=== PATIENT | male | born 1975 | race Native Hawaiian/Other Pacific Islander ===

== ENCOUNTER 2017-01-21 08:46 | Emergency (ER) | payer OTHER ==
[2017-01-21 09:14] LABS: Bilirubin,Urine NEG (Negative); Blood,Urine SM (Negative); Ketones,Urine NEG (Negative); Leukocyte Esterase,Urine NEG (Negative); Mucus,Urine FEW /HPF; Nitrite,Urine NEG (Negative); Protein,Urine <15 mg/dL mg/dL (Negative); Urobilinogen,Urine < 2.0 mg/dL (<2.0); WBC,Urine < 1.0 /HPF (0.0-6.0)
[2017-01-21 09:29] LABS: Basophils % (Auto) 0.7 % (0.0-1.8); Eosinophils % (Auto) 6.3 % (0.0-4.3); Hematocrit 45.4 % (35.5-45.6); Hemoglobin 15.8 gm/dl (11.8-15.2); Mean Corpuscular HGB Conc 35 % (32-34); Mean Corpuscular Hemoglobin 33 pg (28-32); Mean Corpuscular Volume 94 fl (84-94); Platelet Count 191 K/mm3 (140-440); Red Blood Count 4.85 M/mm3 (3.65-5.03); Red Cell Distribution Width 12.7 % (13.2-15.2); White Blood Count 5.8 K/mm3 (4.5-11.0)
[2017-01-21 09:53] LABS: Alanine Aminotransferase 33 units/L (7-56); Albumin 4.4 g/dL (3.9-5); Albumin/Globulin Ratio 1.6 %; Alkaline Phosphatase 96 units/L (35-129); Anion Gap 18 mmol/L; BUN/Creatinine Ratio 22; Blood Urea Nitrogen 13 mg/dL (9-20); Calcium 8.9 mg/dL (8.4-10.2); Carbon Dioxide 25 mmol/L (22-30); Chloride 102.3 mmol/L (98-107); Glucose 100 mg/dL (75-100); Lipase 32 units/L (13-60); Sodium 141 mmol/L (137-145); Total Protein 7.2 g/dL (6.3-8.2)
--- NOTE | 2017-01-21 20:14 | Emergency Department Report ---
HPI - General Chief Complaint: Abdominal Pain Time Seen by Provider: 01/21/17 19:32 - HPI HPI: Room 7 The patient is a 41-year-old male presenting with a chief complaint of abdominal pain. The patient states for approximately one week he has had intermittent lower abdominal pain with left greater than the right. Patient also complains of bilateral back pain. Patient states he saw his primary physician yesterday and a urine dip showed "small blood." The patient states she was told to follow up with the specialist. Patient continues have pain in his low back and lower abdominal pain with left greater than right. Patient missed a mild dysuria. Patient and his nausea but denies vomiting or fever. Patient denies shortness of breath or unexplained weight loss. Patient denies any other types of pain besides what's explained above Location: [See above] Duration: One week Quality: Pain Severity: Moderate Modifying factors: [see above] Context: [see above] Mode of transportation: The patient drove himself to the emergency department and there are no visitors present ED Past Medical Hx - Past Medical History Previous Medical History?: Yes Hx Asthma: Yes - Surgical History Past Surgical History?: Yes Additional Surgical History: hernia - Family History Family history: no significant - Social History Smoking Status: Never Smoker Substance Use Type: Alcohol - Medications Home Medications: Home Medications Medication Instructions Recorded Confirmed Last Taken Type Ibuprofen [Motrin 800 MG tab] 800 mg PO Q8HR PRN #20 tablet 01/21/17 Unknown Rx Sulfamethoxazole/Trimethoprim 1 each PO BID #14 tablet 01/21/17 Unknown Rx [Bactrim DS TAB] traMADol [Ultram] 50 mg PO Q6HR PRN #14 tablet 01/21/17 Unknown Rx ED Review of Systems ROS: Stated complaint: ABDOMINAL/BACK PAIN Other details as noted in HPI Constitutional: denies: fever Eyes: denies: eye pain ENT: denies: throat pain Respiratory: denies: shortness of breath Cardiovascular: denies: chest pain Endocrine: denies: unexplained weight gain Gastrointestinal: abdominal pain, nausea. denies: vomiting Genitourinary: dysuria Musculoskeletal: back pain Neurological: denies: headache Physical Exam - Physical Exam Vital Signs: Vital Signs 01/21/17 01/21/17 09:00 18:36 Temperature 97.4 F L 98.1 F Pulse Rate 60 59 L Respiratory 16 16 Rate Blood Pressure 145/84 Blood Pressure 141/86 [Right] O2 Sat by Pulse 97 98 Oximetry Physical Exam: GENERAL: The patient is well-developed well-nourished male lying on stretcher not appearing to be in acute distress. [] HEENT: Normocephalic. Atraumatic. Extraocular motions are intact. Patient has moist mucous membranes. NECK: Supple. Trachea midline CHEST/LUNGS: Clear to auscultation. There is no respiratory distress noted. HEART/CARDIOVASCULAR: Regular. There is no tachycardia. There is no gallop rub or murmur. ABDOMEN: Abdomen is soft, with discomfort to palpation in bilateral lower quadrants, left greater than right. Patient has normal bowel sounds. There is no abdominal distention. SKIN: There is no rash. There is no edema. There is no diaphoresis. NEURO: The patient is awake, alert, and oriented. The patient is cooperative. The patient has normal speech MUSCULOSKELETAL: There is bilateral CVA tenderness. There is no evidence of acute injury. ED Course Vital Signs 01/21/17 01/21/17 09:00 18:36 Temperature 97.4 F L 98.1 F Pulse Rate 60 59 L Respiratory 16 16 Rate Blood Pressure 145/84 Blood Pressure 141/86 [Right] O2 Sat by Pulse 97 98 Oximetry ED Medical Decision Making - Lab Data Result diagrams: 01/21/17 09:18 01/21/17 09:18 Laboratory Tests 01/21/17 01/21/17 01/21/17 09:05 09:18 09:18 WBC 5.8 RBC 4.85 Hgb 15.8 H Hct 45.4 MCV 94 MCH 33 H MCHC 35 H RDW 12.7 L Plt Count 191 Lymph % (Auto) 29.2 [place] % (Auto) 8.0 H Eos % (Auto) 6.3 H Baso % (Auto) 0.7 Lymph # 1.7 [place] # 0.5 Eos # 0.4 Baso # 0.0 Seg Neutrophils % 55.8 Seg Neutrophils # 3.3 Sodium 141 Potassium 4.0 Chloride 102.3 Carbon Dioxide 25 Anion Gap 18 BUN 13 Creatinine 0.6 L Estimated GFR > 60 BUN/Creatinine Ratio 22 Glucose 100 Calcium 8.9 Total Bilirubin 0.50 AST 22 ALT 33 Alkaline Phosphatase 96 Total Protein 7.2 Albumin 4.4 Albumin/Globulin Ratio 1.6 Lipase 32 Urine Color Yellow Urine Turbidity Clear Urine pH 5.0 Ur Specific [place] 1.016 Urine Protein <15 mg/dl Urine Glucose (UA) Neg Urine Ketones Neg Urine Blood Sm Urine Nitrite Neg Urine Bilirubin Neg Urine Urobilinogen < 2.0 Ur Leukocyte Esterase Neg Urine WBC (Auto) < 1.0 Urine RBC (Auto) 1.0 U Epithel Cells (Auto) < 1.0 Urine Mucus Few - Radiology Data Radiology results: report reviewed (CT abdomen and pelvis), image reviewed (CT abdomen and pelvis) FINAL REPORT PROCEDURE: CT ABDOMEN PELVIS WO CON TECHNIQUE: Computerized axial tomography of the abdomen and pelvis was performed without intravenous contrast. This study is performed without intravascular contrast material and its sensitivity for abdominal and pelvic pathology, including neoplasms, inflammation, abscess, free fluid, thrombosis, arterial dissection and infarction, is reduced compared with a contrast enhanced study. HISTORY: lower abd pain left greater than right. Back pain COMPARISON: No prior studies are available for comparison. FINDINGS: Liver, spleen, pancreas and adrenal glands are within normal limits. Bilateral kidneys demonstrate uniform density without calculi or hydronephrosis. Urinary bladder is empty. Aorta is of normal caliber. There is no free fluid or free air. Gallbladder is unremarkable. Small bowel loops are within normal limits. Moderate amount of residual stool is noted. Appendix is normal. There is mild prostatomegaly. Vertebral height is normal.. IMPRESSION: Moderate degree residual stool. Otherwise no acute intra-abdominal or pelvic pathology as visualized on this noncontrast study.. Transcribed By: [facility] Dictated By: TRISTAN EMERY Electronically Authenticated By: TRISTAN EMERY Signed Date/Time: 01/21/17 163 DD/ 1633 TD/TT: 01/21/17 1633 - Medical Decision Making Patient CT scan is unremarkable. Appendix was visualized and was within normal limits. No evidence of obstructive uropathy. Given patient's dysuria I will initiate empiric antibiotics even though his urinalysis does not necessarily reflect a UTI. Urine culture will be ordered - Differential Diagnosis renal colic, pyelonephritis, UTI, diverticulitis, appendicitis Critical care attestation.: If time is entered above; I have spent that time in minutes in the direct care of this critically ill patient, excluding procedure time. ED Disposition Clinical Impression: Acute abdominal pain, Dysuria Disposition: DC-01 TO HOME OR SELFCARE Is pt being admited?: No Does the pt Need Aspirin: No Condition: Stable Instructions: Dysuria (ED) Additional Instructions: Return to the emergency department immediately should you develop worsening symptoms, fever, inability to tolerate food or liquid or any other concerns. Prescriptions: Ibuprofen [Motrin 800 MG tab] 800 mg PO Q8HR PRN #20 tablet PRN Reason: Pain Sulfamethoxazole/Trimethoprim [Bactrim DS TAB] 1 each PO BID #14 tablet traMADol [Ultram] 50 mg PO Q6HR PRN #14 tablet PRN Reason: Pain Referrals: PRIMARY CARE, [Primary Care Provider] - 3-5 Days TERESSA BUNDY MD [Staff Physician] - 3-5 Days (Dr. Bundy is a financial business analyst. Please follow up with him for further evaluation) Time of Disposition: 20:40
--- NOTE | 2017-01-21 20:35 | Cat Scan Report ---
FINAL REPORT PROCEDURE: CT ABDOMEN PELVIS WO CON TECHNIQUE: Computerized axial tomography of the abdomen and pelvis was performed without intravenous contrast. This study is performed without intravascular contrast material and its sensitivity for abdominal and pelvic pathology, including neoplasms, inflammation, abscess, free fluid, thrombosis, arterial dissection and infarction, is reduced compared with a contrast enhanced study. HISTORY: lower abd pain left greater than right. Back pain COMPARISON: No prior studies are available for comparison. FINDINGS: Liver, spleen, pancreas and adrenal glands are within normal limits. Bilateral kidneys demonstrate uniform density without calculi or hydronephrosis. Urinary bladder is empty. Aorta is of normal caliber. There is no free fluid or free air. Gallbladder is unremarkable. Small bowel loops are within normal limits. Moderate amount of residual stool is noted. Appendix is normal. There is mild prostatomegaly. Vertebral height is normal.. IMPRESSION: Moderate degree residual stool. Otherwise no acute intra-abdominal or pelvic pathology as visualized on this noncontrast study..
[2017-01-21 21:11] VITALS: BP 133/79
== END 2017-01-21 21:25 | disposition home or self-care (01) ==
LOC: ED 08:46
DX: R10.31 Right lower quadrant pain (principal); R10.32 Left lower quadrant pain; R30.0 Dysuria; J45.909 Unspecified asthma, uncomplicated
CPT/HCPCS: 36415; 74176; 80053; 81001; 83690; 85025; 87086